=== PATIENT | female | born 1965 | race Caucasian/White ===

== ENCOUNTER 2019-04-11 23:15 | Emergency (ER) | payer SELFPAY ==
[~2019-04-11] VITALS: Ht 157.5 cm; Wt 59.1 kg
[~2019-04-11 23:15] MED LIST: AMOXICILLIN875 MG PO; CEFTIN 250250 MG/TAB PO; CEPHALEXIN500 M1 PO; IBUPROFEN800 M1 PO; LORTAB 5/500 501 TAB PO; MACROBID 1100 MG/CAP PO; NO HOME MEDICATIONS; NORCO 325 MG-51 TAB PO; NORCO 325 MG-7.1 TAB PO; PERCOCET 325 MG1 TA2 PO; PHENERGAN 25 TA25 MG PO; PYRIDIUM200 M1 PO
[2019-04-11 23:36] VITALS: BP 119/56; PULSE 87; TEMP 97.1
[2019-04-12] MEDS ORDERED: PREDNISONE20 MG PO (09:21)
[2019-04-12] MEDS ORDERED: FLEXERIL 1010 MG/TAB PO (09:22)
== END 2019-04-12 02:10 | disposition left against medical advice (07) ==
LOC: COL.ER 23:15
DX: S79.912A Unspecified injury of left hip, initial encounter (principal); X50.0XXA Overexertion from strenuous movement or load, initial encounter; Y92.59 Other trade areas as the place of occurrence of the external cause

== ENCOUNTER 2019-04-12 09:02 | Emergency (ER) | payer SELFPAY ==
[~2019-04-12] VITALS: Ht 157.5 cm; Wt 59.1 kg
[2019-04-12 09:10] VITALS: BP 103/59
[2019-04-12] MEDS ORDERED: PREDNISONE20 MG PO (09:21)
[2019-04-12] MEDS ORDERED: FLEXERIL 1010 MG/TAB PO (09:22)
[2019-04-12 09:55] VITALS: PULSE 90; TEMP 98.7
== END 2019-04-12 09:55 | disposition home or self-care (01) ==
LOC: COL.ER 09:02
DX: M54.5 Low back pain (principal); X50.0XXA Overexertion from strenuous movement or load, initial encounter

== ENCOUNTER 2019-05-08 12:53 | Emergency (ER) | payer SELFPAY ==
[~2019-05-08] VITALS: Ht 157.5 cm; Wt 61.4 kg
[~2019-05-08 12:53] MED LIST changes: +FLEXERIL 1010 MG/TAB PO; +PREDNISONE20 MG PO
[2019-05-08 13:00] VITALS: TEMP 98.2
[2019-05-08] MEDS ORDERED: CEPHALEXIN500 M1 PO (14:18)
[2019-05-08] MEDS ORDERED: NORCO 325 MG-7.1 TAB PO (14:18)
[2019-05-08 14:45] VITALS: BP 126/68; PULSE 94
== END 2019-05-08 14:45 | disposition home or self-care (01) ==
LOC: COL.ER 12:53
DX: T23.231A Burn of second degree of multiple right fingers (nail), not including thumb, initial encounter (principal); X19.XXXA Contact with other heat and hot substances, initial encounter

== ENCOUNTER 2019-10-09 14:47 | Emergency (ER) | payer OTHER ==
[~2019-10-09] VITALS: Ht 157.5 cm; Wt 63.6 kg
[2019-10-09 15:11] VITALS: BP 131/84; TEMP 97.7
[2019-10-09 19:00] VITALS: PULSE 87
== END 2019-10-09 19:00 | disposition home or self-care (01) ==
LOC: COL.ER 14:47
DX: M79.652 Pain in left thigh (principal); Z87.891 Personal history of nicotine dependence

== ENCOUNTER → 2019-10-09 | Outpatient (CLI) | payer OTHER | LOC: COL.RAD 14:06 | DX: M79.652 Pain in left thigh (principal) ==

== ENCOUNTER 2019-10-29 15:08 | Outpatient (RCR) | payer OTHER | END 2019-12-13 10:40 | disposition still patient (30) | LOC: WSOH 15:08 | DX: S60.022A Contusion of left index finger without damage to nail, initial encounter (principal); S61.211A Laceration without foreign body of left index finger without damage to nail, initial encounter; Z90.710 Acquired absence of both cervix and uterus; Y99.0 Civilian activity done for income or pay ==

== ENCOUNTER 2019-12-31 00:25 | Emergency (ER) | payer SELFPAY ==
[~2019-12-31] VITALS: Ht 157.5 cm; Wt 63.2 kg
[2019-12-31] MEDS ORDERED: NORCO 325 MG-51 TAB PO (01:46)
[2019-12-31 03:00] VITALS: BP 118/62; PULSE 72; TEMP 98.8
== END 2019-12-31 03:00 | disposition home or self-care (01) ==
LOC: COL.ER 00:25
DX: S52.501A Unspecified fracture of the lower end of right radius, initial encounter for closed fracture (principal); Z90.710 Acquired absence of both cervix and uterus; W01.0XXA Fall on same level from slipping, tripping and stumbling without subsequent striking against object, initial encounter; Y92.410 Unspecified street and highway as the place of occurrence of the external cause
CPT/HCPCS: J1170; Q4021

== ENCOUNTER 2020-02-02 12:04 | Emergency (ER) | payer SELFPAY ==
[~2020-02-02] VITALS: Ht 157.5 cm; Wt 62.6 kg
[2020-02-02 12:10] VITALS: BP 117/80; TEMP 98.4
[2020-02-02] MEDS ORDERED: NEURONTIN600 MG/TAB PO (12:24)
[2020-02-02] MEDS ORDERED: FLEXERIL 1010 MG/TAB PO (12:24)
[2020-02-02] MEDS ORDERED: MOBIC15 MG PO (12:25)
[2020-02-02] MEDS ORDERED: NORCO 325 MG-51 TAB PO (12:36)
[2020-02-02] MEDS ORDERED: NAPROSYN 2250 MG/TAB PO (12:42)
[2020-02-02 13:05] VITALS: PULSE 90
== END 2020-02-02 13:07 | disposition home or self-care (01) ==
LOC: COL.ER 12:04
DX: S32.010A Wedge compression fracture of first lumbar vertebra, initial encounter for closed fracture (principal); S32.020A Wedge compression fracture of second lumbar vertebra, initial encounter for closed fracture; Z88.8 Allergy status to other drugs, medicaments and biological substances; W19.XXXA Unspecified fall, initial encounter
CPT/HCPCS: J1170; J1885

== ENCOUNTER → 2020-05-15 | Outpatient (CLI) | payer OTHER ==
[~2020-05-15] MED LIST changes: +MOBIC15 MG PO; +NAPROSYN 2250 MG/TAB PO; +NEURONTIN600 MG/TAB PO
== END ==
LOC: COL.RAD 12:30
DX: M18.11 Unilateral primary osteoarthritis of first carpometacarpal joint, right hand (principal); Z87.81 Personal history of (healed) traumatic fracture
CPT/HCPCS: A9585; Q9967

== ENCOUNTER → 2020-06-16 | Outpatient (CLI) | payer OTHER | LOC: COL.RAD 06-08 07:30 | DX: M51.36 Other intervertebral disc degeneration, lumbar region (principal); M51.37 Other intervertebral disc degeneration, lumbosacral region; M47.816 Spondylosis without myelopathy or radiculopathy, lumbar region; M43.8X6 Other specified deforming dorsopathies, lumbar region ==

== ENCOUNTER 2021-05-25 14:29 | Emergency (ER) | payer OTHER ==
[~2021-05-25] VITALS: Ht 157.5 cm; Wt 58.6 kg
[2021-05-25 14:54] LABS: COLLECTION METHOD CLEAN CATCH
[2021-05-25 15:09] LABS: MUCOUS Present /lpf; PH 6 (5-8); URINE APPEARANCE Turbid; URINE BACTERIA None Seen /hpf; URINE BILIRUBIN Negative (NEGATIVE); URINE BLOOD 3+ (NEGATIVE); URINE COLOR Amber; URINE GLUCOSE Negative (NEGATIVE); URINE KETONE 1+ (NEGATIVE); URINE LEUKOCYTE ESTERASE 3+ (NEGATIVE); URINE NITRATE Negative (NEGATIVE); URINE PROTEIN(semi-quant) 2+ (NEGATIVE); URINE RBC >50 /hpf; URINE UROBILINOGEN Negative (NEGATIVE)
[2021-05-25 16:16] LABS: BASO # 0.1 (0.0-0.2); BASO % 0.6 % (0.0-2.0); EOS % 0.2 % (0-4.0); GRAN # 9.2 (1.4-6.5); GRAN % 74.8 % (42.2-75.2); HEMATOCRIT 38.8 % (37.0-47.0); LYMPH # 2.4 (1.2-3.4); LYMPH % 19.6 % (20.0-51.0); MEAN CELL VOLUME 89 fl (80.0-100.0); MEAN CORPUSCULAR HEMOGLOBIN 30 pg (27.0-31.0); MEAN CORPUSCULAR HGB CONC 34 g/dl (33.0-37.0); MEAN PLATELET VOLUME 11.4 fl (7.4-10.4); MONO # 0.6 (0.1-0.6); MONO % 4.5 % (1.7-9.3); PLATELET COUNT 330 K/mm3 (130-400); RED BLOOD COUNT 4.37 M/mm3 (4.10-5.30); REDCELL DISTRIBUTION WIDTH-CV 12.2 % (11.5-14.5)
[2021-05-25 17:07] LABS: ALBUMIN 4.5 gm/dL (3.5-5.0); BILIRUBIN,TOTAL 0.8 mg/dL (0.0-1.0); CALCIUM 9.2 mg/dL (8.4-10.2); CREATININE, serum 0.54 (0.52-1.25); POTASSIUM 3.5 mmol/L (3.4-5.0); TOTAL PROTEIN 7.8 gm/dL (6.4-8.2)
[2021-05-25] MEDS ORDERED: CEPHALEXIN500 M1 PO (17:56)
[2021-05-25] MEDS ORDERED: ZOFRAN ODT4 MG PO (17:58)
[2021-05-25 18:34] VITALS: BP 121/73; PULSE 87; TEMP 98
== END 2021-05-25 18:39 | disposition home or self-care (01) ==
LOC: COL.ER 14:29
PROVIDERS: Family Medicine; Physician Assistant
DX: N39.0 Urinary tract infection, site not specified (principal); F17.210 Nicotine dependence, cigarettes, uncomplicated; Z88.8 Allergy status to other drugs, medicaments and biological substances
CPT/HCPCS: J0696; J2550; J7030

== ENCOUNTER 2021-08-27 14:14 | Emergency (ER) | payer OTHER ==
[~2021-08-27] VITALS: Ht 157.5 cm; Wt 59.1 kg
[~2021-08-27 14:14] MED LIST changes: +ZOFRAN ODT4 MG PO
[2021-08-27 15:29] LABS: BASO % 0.2 % (0.0-2.0); GRAN # 7.8 (1.4-6.5); HEMOGLOBIN 11.4 g/dl (12.5-16.0); LYMPH # 1.4 (1.2-3.4); LYMPH % 14.3 % (20.0-51.0); MEAN CELL VOLUME 90 fl (80.0-100.0); MEAN CORPUSCULAR HEMOGLOBIN 29 pg (27.0-31.0); MEAN CORPUSCULAR HGB CONC 32 g/dl (33.0-37.0); MEAN PLATELET VOLUME 10.3 fl (7.4-10.4); MONO # 0.5 (0.1-0.6); MONO % 5.3 % (1.7-9.3); PLATELET COUNT 279 K/mm3 (130-400); RED BLOOD COUNT 3.93 M/mm3 (4.10-5.30); REDCELL DISTRIBUTION WIDTH-CV 12.9 % (11.5-14.5)
[2021-08-27 15:36] LABS: HEMATOCRIT 35.5 % (37.0-47.0)
[2021-08-27] MEDS ORDERED: NARCAN4 MG NS (15:37)
[2021-08-27 16:05] LABS: ALANINE AMINOTRANSFERASE 20 U/L (0-55); ALBUMIN 4.2 gm/dL (3.5-5.0); ALKALINE PHOSPHATASE 79 U/L (0-750); ANION GAP 11 mmol/L (7-16); AST,SGOT 22 U/L (5-34); BILIRUBIN,TOTAL 0.3 mg/dL (0.2-1.2); BLOOD UREA NITROGEN 14 mg/dL (10-20); CALCIUM 9.3 mg/dL (8.4-10.2); CARBON DIOXIDE 26 mmol/L (22-29); CHLORIDE 102 mmol/L (98-107); CREATININE, serum 0.75 mg/dL (0.57-1.11); GLUCOSE 136 mg/dL (70-99); POTASSIUM 3.6 mmol/L (3.5-4.5); SODIUM 139 mmol/L (136-145); TOTAL PROTEIN 7.5 gm/dL (6.2-8.1)
[2021-08-27 16:07] LABS: COLLECTION METHOD CLEAN CATCH
[2021-08-27 16:27] LABS: TSH w REFLEX 0.784 uIU/mL (0.350-4.940)
[2021-08-27 16:29] LABS: TROPONIN-I < 0.010 ng/mL (0.00-0.033)
[2021-08-27 16:37] LABS: MUCOUS Present /lpf; PH 5 (5-8); SQUAMOUS EPITHELIAL None Seen /hpf; URINE APPEARANCE Hazy; URINE BACTERIA None Seen /hpf; URINE BILIRUBIN Negative (NEGATIVE); URINE BLOOD Negative (NEGATIVE); URINE COLOR Yellow; URINE GLUCOSE Negative (NEGATIVE); URINE KETONE 2+ (NEGATIVE); URINE LEUKOCYTE ESTERASE Trace (NEGATIVE); URINE NITRATE Negative (NEGATIVE); URINE PROTEIN(semi-quant) 2+ (NEGATIVE); URINE RBC 0-2 /hpf; URINE UROBILINOGEN Negative (NEGATIVE)
[2021-08-27 16:52] LABS: TRICYCLIC ANTIDEPRESS URINE NEGATIVE
[2021-08-27 17:50] VITALS: BP 122/64; PULSE 80; TEMP 98
== END 2021-08-27 17:50 | disposition home or self-care (01) ==
LOC: COL.ER 14:14
PROVIDERS: Emergency Medicine
DX: T40.2X1A Poisoning by other opioids, accidental (unintentional), initial encounter (principal)

== ENCOUNTER 2022-02-14 11:37 | Emergency (ER) | payer OTHER ==
[~2022-02-14] VITALS: Ht 157.5 cm; Wt 59.1 kg
[~2022-02-14 11:37] MED LIST changes: +NARCAN4 MG NS
[2022-02-14 11:45] VITALS: TEMP 97.8
[2022-02-14] MEDS ORDERED: ZOFRAN ODT4 MG PO (13:15)
[2022-02-14 13:20] VITALS: BP 110/66; PULSE 96
== END 2022-02-14 13:23 | disposition home or self-care (01) ==
LOC: COL.ER 11:37
DX: F11.23 Opioid dependence with withdrawal (principal); Z88.8 Allergy status to other drugs, medicaments and biological substances

== ENCOUNTER 2022-12-20 16:07 | Emergency (ER) | payer OTHER ==
[~2022-12-20] VITALS: Ht 157.5 cm; Wt 61.4 kg
[2022-12-20 16:09] VITALS: BP 112/65; TEMP 98.1
[2022-12-20 17:21] VITALS: PULSE 92
== END 2022-12-20 17:22 | disposition home or self-care (01) ==
LOC: COL.ER 16:07
DX: J10.1 Influenza due to other identified influenza virus with other respiratory manifestations (principal); Z87.891 Personal history of nicotine dependence; Z20.822 Contact with and (suspected) exposure to COVID-19

== ENCOUNTER 2024-01-16 08:38 | Emergency (ER) | payer OTHER ==
[~2024-01-16] VITALS: Ht 157.5 cm; Wt 56.8 kg
[~2024-01-16 08:38] MED LIST changes: +ZITHROMAX Z PA250 MG PO
[2024-01-16 08:48] VITALS: BP 119/72; TEMP 97.7
[2024-01-16 10:23] VITALS: PULSE 98
== END 2024-01-16 10:36 | disposition home or self-care (01) ==
LOC: COL.ER 08:38
DX: J20.9 Acute bronchitis, unspecified (principal)